=== PATIENT | male | born 1990 | race American Indian/Alaskan Native ===

== ENCOUNTER 2019-02-07 20:38 | Emergency (ER) | payer OTHER ==
[~2019-02-07] VITALS: Ht 180.3 cm; Wt 107.0 kg
[2019-02-07] MEDS ORDERED: ALLEGRA ALLERG180 MG PO (20:51)
[2019-02-07] MEDS ORDERED: FLONASE ALLERG9.9 ML NAS (20:51)
== END 2019-02-07 22:42 | disposition home or self-care (01) ==
LOC: ED 20:38
PROC: 0HQGXZZ Repair Left Hand Skin, External Approach (ICD-10-PCS; principal; 2019-02-07)
DX: S61.412A Laceration without foreign body of left hand, initial encounter (principal); Z87.891 Personal history of nicotine dependence; Z79.899 Other long term (current) drug therapy; W26.0XXA Contact with knife, initial encounter
CPT/HCPCS: 12001; 90471; 90715; 99282-25